=== PATIENT | male | born 1950 | race Caucasian/White ===

== ENCOUNTER 2020-05-30 06:57 | Day surgery (SDC) | payer MEDICARE, BC ==
[~2020-05-30 06:57] MED LIST: Lactated Ringers 1,000 ML IV SCH; Lidocaine 1%/Sod Bicarbonate in NS 8.4% 1 ML Syringe IDERM PRN; Sodium Chloride 0.9% 10 ML Syringe FLUSH PRN
--- NOTE | 2020-05-30 07:47 | PCM.PREANE ---
Preanesthetic Assessment - Procedure Proposed Procedure: Colonoscopy - Review of Systems General: No Symptoms, Fever Pulmonary: Cough (smoker's), Other (COPD, uses O2 at home intermittently) Cardiovascular: No Symptoms Gastrointestinal: No Symptoms Neurological: No Symptoms Other: Reports: None - Physical Assessment NPO Status Date: 05/30/20 NPO Status Time: 01:00 Vital Signs: Last Vital Signs Temp 97.7 F 05/30/20 07:00 Pulse 84 05/30/20 07:00 Resp 16 05/30/20 07:00 BP 137/94 H 05/30/20 07:00 Pulse Ox 95 05/30/20 07:00 Height: 1.83 m Weight: 99.79 kg ASA Class: 3 Mental Status: Alert & Oriented x3 Airway Class: Mallampati = 2 Dentition: Reports: Missing Tooth/Teeth, Caries Thyro-Mental Finger Breadths: 3 Mouth Opening Finger Breadths: 3 ROM/Head Extension: Full Lungs: Clear to Auscultation, Normal Respiratory Effort Cardiovascular: Regular Rate, Regular Rhythm - Lab Values: Laboratory Last Values POC Glucose 161 mg/dL (80-115) H 05/30/20 07:26 - Allergies Allergies/Adverse Reactions: Allergies Allergy/AdvReac Type Severity Reaction Status Date / Time No Known Allergies Allergy Verified 05/29/20 12:33 - Anesthesia Plan Beta Enrike: Metoprolol Med Last Dose Date: 05/29/20 Med Last Dose Time: 06:00 - Acknowledgements Anesthesia Type Planned: MAC Pt an Appropriate Candidate for the Planned Anesthesia: Yes Alternatives and Risks of Anesthesia Discussed w Pt/Guardian: Yes Pt/Guardian Understands and Agrees with Anesthesia Plan: Yes PreAnesthesia Questionnaire HEENT History: Reports: Glaucoma Cardiovascular History: Reports: High Cholesterol, Hypertension Respiratory History: Reports: Other (See Below) Other Respiratory History: o2 use at night Gastrointestinal History: Reports: Chronic Constipation Genitourinary History: Reports: None IMAGE SCIENTIST History: Reports: None Musculoskeletal History: Reports: Gout Neurological History: Reports: None Psychiatric History: Reports: None Endocrine/Metabolic History: Reports: Diabetes, Type II Hematologic History: Reports: Polycythemia, Other (See Below) Other Hematologic History: theraputic phlebotomy Immunologic History: Reports: None Oncologic (Cancer) History: Reports: None Dermatologic History: Reports: None - Infectious Disease History Infectious Disease History: Reports: None - Past Surgical History Head Surgeries/Procedures: Reports: None HEENT Surgical History: Reports: Tonsillectomy Cardiovascular Surgical History: Reports: Coronary Artery Bypass Respiratory Surgical History: Reports: None GI Surgical History: Reports: Colonoscopy Female Surgical History: Reports: None Male Surgical History: Reports: None Endocrine Surgical History: Reports: None Neurological Surgical History: Reports: None Musculoskeletal Surgical History: Reports: Arthroscopic Knee Dermatological Surgical History: Reports: None - SUBSTANCE USE Tobacco Use Status *Q: Current Every Day Tobacco User - HOME MEDS Home Medications: Home Meds Allopurinol [Zyloprim] 200 mg PO DAILY 05/29/20 [History] Ascorbic Acid [Vitamin C] 1,000 mg PO DAILY 05/29/20 [History] Aspirin [Jordan Chewable] 81 mg PO DAILY 05/29/20 [History] Brimonidine Tartrate [Brimonidine Tartrate 0.2% Ophth Soln] 1 drop EYEBOTH DAILY 05/29/20 [History] Docusate Sodium [Stool Softener] 100 mg PO DAILY 05/29/20 [History] Meloxicam [Mobic] 7.5 mg PO DAILY 05/29/20 [History] Metoprolol Succinate 50 mg PO DAILY 05/29/20 [History] Multivitamin 1 each PO DAILY 05/29/20 [History] Sildenafil [Viagra] 100 mg PO ASDIRECTED PRN 05/29/20 [History] Ubidecarenone [Coq-10] 100 mg PO DAILY 05/29/20 [History] Vitamin B Complex 1 each PO DAILY 05/29/20 [History] atorvaSTATin [Lipitor] 20 mg PO DAILY 05/29/20 [History] sitaGLIPtin Phos/Metformin HCl [Janumet 50-1,000 MG] 1 tab PO DAILY 05/29/20 [History] - CURRENT (IN HOUSE) MEDS Current Meds: Current Medications Lactated Ringer's (Ringers, Lactated) 1,000 mls @ 125 mls/hr IV ASDIRECTED CHRIS Stop: 05/30/20 23:00 Last Admin: 05/30/20 07:20 Dose: 125 mls/hr Documented by: Lidocaine/Sodium Bicarbonate (Buffered Lidocaine 1% In Ns 8.4%) 0.25 ml IDERM ONETIME PRN PRN Reason: Prior to IV Start Stop: 05/30/20 18:00 Last Admin: 05/30/20 07:19 Dose: 0.25 ml Documented by: Sodium Chloride (Saline Flush) 10 ml FLUSH ASDIRECTED PRN PRN Reason: Keep Vein Open Stop: 05/30/20 18:00
[2020-05-30] MEDS ORDERED: Propofol 200 MG/20 ML SDV ONE ×2 (07:57→08:37)
[2020-05-30] MEDS ORDERED: fentaNYL 100 MCG/2 ML SDV ONE (08:00)
[2020-05-30] MEDS ORDERED: Lidocaine 1% 4 ML ONE (08:09)
--- NOTE | 2020-05-30 09:10 | PCM.OPNOTE ---
- General Post-Op/Procedure Note Date of Surgery/Procedure: 05/30/20 Operative Procedure(s): colonoscopy Findings: 1. cecal polyp 2. ascending colon polyp 3. Hepatic flexure polyp x2 4. Transverse colon polyp x5 5. Descending colon polyp x4 6. Sigmoid colon polyp Pre Op Diagnosis: Positive cologuard Post-Op Diagnosis: same Anesthesia Technique: MAC Primary Surgeon: Marjorie Watters Anesthesia Provider: Carlitos Obando Pathology: 1. cecal polyp 2. ascending colon polyp 3. Hepatic flexure polyp x2 4. Transverse colon polyp x5 5. Descending colon polyp x4 6. Sigmoid colon polyp Fluid Replacement, Intraop: 1,000 Output, Urine Amount: 0 EBL in mLs: 0 Complications: none apparent Condition: Good
--- NOTE | 2020-05-30 09:12 | PCM.PRNOTE ---
- Free Text/Narrative Note: Operative Report Date of Surgery/Procedure: May 30, 2020 Operative Procedure: Colonoscopy to cecum with polypectomy Pre Op Diagnosis: Positive Cologuard test Post-Op Diagnosis: same Surgeon: Marjorie Watters MD Anesthesia Technique: MAC Anesthesia Provider: Carlitos Obando CRNA IV Fluid Replacement, Intraop: 1000cc Output, Urine Amount: 0cc EBL : 0cc Findings: 1. cecal polyp 2. ascending colon polyp 3. Hepatic flexure polyp x2 4. Transverse colon polyp x5 5. Descending colon polyp x4 6. Sigmoid colon polyp Specimens: cecal polyp ascending colon polyp Hepatic flexure polyp x2 Transverse colon polyp x5 Descending colon polyp x4 Sigmoid colon polyp Indication: The patient is a 69 year-old gentleman who presented to the outpatient clinic requesting colorectal cancer evaluation after obtaining a positive cologuard test. We discussed the procedure of a diagnostic colonoscopy including the po lypectomy and biopsy. Risks of bleeding and perforation were discussed, the patient understood and wished to proceed. Written and consent was obtained Description of the procedure: The patient was brought to the endoscopy suite and placed in the left lateral decubitus position. Appropriate monitors were applied. The patient was given MAC anesthesia. An anorectal examination was performed, revealing no external abnormality. The scope was placed into the rectum and advanced to cecum with minimal difficulty requiring no additional maneuvers. The patients cecum was entered, and the ileocecal valve and appendiceal orifice were identified and normal. At this point, the scope was withdrawn, paying careful attention to the mucosa. The patient had adequate bowel prep, allowing for visualization of 85- 90% of the mucosa after washing and suctioning. The cecal polyp was noted, measuring 3 mm and was flat. This was removed with a jumbo cold biopsy forceps. An additional 2 mm ascending colon flat polyp was noted and removed with a jumbo cold biopsy forceps. The patient had 2 polyps in the hepatic flexure one measuring 5 mm and the other measuring 3 mm these were semipedunculated and rem salvatore with a jumbo cold biopsy forceps. There were 5 transverse colon polyps ranging from 2 to 5 mm and flat. These were removed with a jumbo cold biopsy forceps. In the descending colon there were additional 4 flat polyps that measured 1 to 3 mm and removed with a jumbo cold biopsy forceps. A 5 mm semipedunculated polyp was noted in the sigmoid colon and removed with a jumbo cold biopsy forceps. In the rectum, the scope was retroflexed and no abnormalities were noted, except for some hemorrhoidal tissue. The scope was placed back in the lumen and the excess air was aspirated. The patient tolerated the procedure well. Complications: none apparent Condition: Good, transported to PACU in stable condition Marjorie Watters MD General Surgery
--- NOTE | 2020-05-30 09:49 | PCM48HPAN ---
Post Anesthesia Note - EVALUATION WITHIN 48HRS OF ANESTHETIC Vital Signs in Normal Range: Yes Patient Participated in Evaluation: Yes Respiratory Function Stable: Yes Airway Patent: Yes Cardiovascular Function Stable: Yes Hydration Status Stable: Yes Pain Control Satisfactory: Yes Nausea and Vomiting Control Satisfactory: Yes Mental Status Recovered: Yes Vital Signs: Last Vital Signs Temp 98.9 F 05/30/20 09:09 Pulse 68 05/30/20 09:30 Resp 16 05/30/20 09:30 BP 117/84 05/30/20 09:30 Pulse Ox 95 05/30/20 09:30
== END 2020-05-30 10:25 | disposition home or self-care (01) ==
LOC: JD.SDS 06:57
PROVIDERS: ATTEND Surgery
DX: D12.2 Benign neoplasm of ascending colon (principal); D12.3 Benign neoplasm of transverse colon; K63.89 Other specified diseases of intestine; K64.9 Unspecified hemorrhoids; I10 Essential (primary) hypertension; F17.210 Nicotine dependence, cigarettes, uncomplicated; E11.9 Type 2 diabetes mellitus without complications; Z98.890 Other specified postprocedural states; Z79.899 Other long term (current) drug therapy; Z82.49 Family history of ischemic heart disease and other diseases of the circulatory system
CPT/HCPCS: 45380; 82962; 88305; 93005; J2001; J2704; J3010; J7120; 00811

== ENCOUNTER 2021-05-18 23:24 | Emergency (ER) | payer MEDICARE, BC ==
--- NOTE | 2021-05-18 23:55 | EDM.PDOC ---
ED HPI GENERAL MEDICAL PROBLEM - General Chief Complaint: Respiratory Problem Stated Complaint: SACHIN AMB Time Seen by Provider: 05/18/21 23:50 Source of Information: Reports: Patient History Limitations: Reports: No Limitations - History of Present Illness INITIAL COMMENTS - FREE TEXT/NARRATIVE: Patient is a 70-year-old male with a smoking history presenting with a chief complaint of shortness of breath. Shortness of breath started just prior to arrival. Patient fell sudden onset of difficulty breathing which did not improve despite applying some supplemental oxygen at home. He states he was prescribed submental oxygen several years ago but is never used it. He otherwise denies any headache, chest pain, lower extremity swelling. He has no cough or fever. Denies recent hospitalizations or surgeries. - Related Data Allergies Allergy/AdvReac Type Severity Reaction Status Date / Time No Known Allergies Allergy Verified 05/18/21 23:32 Home Meds: Home Meds Ascorbic Acid [Vitamin C] 1,000 mg PO DAILY 05/29/20 [History] Aspirin [Jordan Chewable Aspirin] 81 mg PO DAILY 05/29/20 [History] Brimonidine Tartrate [Brimonidine Tartrate 0.2% Ophth Soln] 1 drop EYEBOTH DAILY 05/29/20 [History] Docusate Sodium [Stool Softener] 100 mg PO DAILY 05/29/20 [History] Meloxicam [Mobic] 7.5 mg PO DAILY 05/29/20 [History] Metoprolol Succinate 50 mg PO DAILY 05/29/20 [History] Multivitamin 1 each PO DAILY 05/29/20 [History] Sildenafil [Viagra] 100 mg PO ASDIRECTED PRN 05/29/20 [History] Ubidecarenone [Coq-10] 100 mg PO DAILY 05/29/20 [History] Vitamin B Complex 1 each PO DAILY 05/29/20 [History] allopurinoL [Zyloprim] 200 mg PO DAILY 05/29/20 [History] atorvaSTATin [Lipitor] 20 mg PO DAILY 05/29/20 [History] sitaGLIPtin Phos/Metformin HCl [Janumet 50-1,000 MG] 1 tab PO DAILY 05/29/20 [History] Potassium Chloride 20 meq PO TID #30 packet 05/19/21 [Rx] Past Medical History HEENT History: Reports: Glaucoma Cardiovascular History: Reports: High Cholesterol, Hypertension Respiratory History: Reports: Other (See Below) Other Respiratory History: o2 use at night Gastrointestinal History: Reports: Chronic Constipation Genitourinary History: Reports: None TECH INTERN History: Reports: None Musculoskeletal History: Reports: Gout Neurological History: Reports: None Psychiatric History: Reports: None Endocrine/Metabolic History: Reports: Diabetes, Type II Hematologic History: Reports: Polycythemia, Other (See Below) Other Hematologic History: theraputic phlebotomy Immunologic History: Reports: None Oncologic (Cancer) History: Reports: None Dermatologic History: Reports: None - Infectious Disease History Infectious Disease History: Reports: None - Past Surgical History Head Surgeries/Procedures: Reports: None HEENT Surgical History: Reports: Tonsillectomy Cardiovascular Surgical History: Reports: Coronary Artery Bypass Respiratory Surgical History: Reports: None GI Surgical History: Reports: Colonoscopy Male Surgical History: Reports: None Endocrine Surgical History: Reports: None Neurological Surgical History: Reports: None Musculoskeletal Surgical History: Reports: Arthroscopic Knee Dermatological Surgical History: Reports: None Social & Family History - Tobacco Use Tobacco Use Status *Q: Current Every Day Tobacco User Years of Tobacco use: 50 Packs/Tins Daily: 0.5 - Recreational Drug Use Recreational Drug Use: No ED ROS GENERAL - Review of Systems Review Of Systems: See Below Free Text/Narrative/Comment: In addition to that documented in the HPI above, the additional ROS was obtained: Constitutional: Denies fevers or chills Eyes: Denies vision changes ENMT: Denies sore throat CV: Denies chest pain Resp: Per HPI GI: Denies vomiting or diarrhea : Denies painful urination MSK: Denies recent trauma Skin: Denies new rashes Neuro: Denies new numbness or tingling or weakness Endocrine: Denies unexpected weight loss Heme: Denies bleeding disorders ED EXAM, GENERAL - Physical Exam Exam: See Below Free Text/Narrative:: I have reviewed the triage vital signs Const: Well nourished, well developed, appears stated age Eyes: Pupils Equal and reactive to light bilaterally, no conjunctival injection HENT: No signs of trauma or swelling, Neck supple without meningismus CV: Regular Rate Rhythm, Warm, well-perfused extremities RESP: Unlabored respiratory effort. No wheezing or rales. GI: soft, non-tender, non-distended, no masses MSK: No gross deformities appreciated Skin: Warm, dry. No rashes Neuro: Alert, maple syrup maker II-XII grossly intact. Sensation and motor function of extremities grossly intact. Psych: Appropriate mood and affect. #1 Interpretation EKG Date: 05/18/21 Time: 23:38 Rhythm: NSR Rate (Beats/Min): 88 Goodman: RAD-Right Goodman Deviation P-Wave: Present QRS: Normal ST-T: Depressed QT: Normal Comparison: Change From Previous EKG EKG Interpretation Comments: Ventricular trigeminy noted. Slight ST depression in lateral leads V4 through V6. Abnormal EKG. Course - Vital Signs Last Recorded V/S: Last Vital Signs Temp 36.1 C 05/18/21 23:29 Pulse 85 05/19/21 04:00 Resp 18 05/19/21 04:00 BP 119/78 05/19/21 04:00 Pulse Ox 97 05/19/21 04:00 - Orders/Labs/Meds Orders: Active Orders 24 hr Category Date Time Status Ang Chest [CT] Stat Exams 05/19/21 00:10 Taken Chest 1V Frontal [CR] Stat Exams 05/18/21 23:38 Taken Labs: Laboratory Tests 05/18/21 05/18/21 05/18/21 Range/Units 23:30 23:39 23:39 WBC 9.50 H (4.23-9.07) K/mm3 RBC 5.41 (4.63-6.08) M/mm3 Hgb 13.8 (13.7-17.5) gm/dl Hct 43.3 (40.1-51.0) % MCV 80.0 (79.0-92.2) fl MCH 25.5 L (25.7-32.2) pg MCHC 31.9 L (32.2-35.5) g/dl RDW Std Deviation 62.6 H (35.1-43.9) fL Plt Count 205 (163-337) K/mm3 MPV 10.2 (9.4-12.3) fl Neut % (Auto) 70.4 H (34.0-67.9) % Lymph % (Auto) 18.5 L (21.8-53.1) % Brantley % (Auto) 7.8 (5.3-12.2) % Eos % (Auto) 2.7 (0.8-7.0) Baso % (Auto) 0.4 (0.1-1.2) % Neut # (Auto) 6.68 H (1.78-5.38) K/mm3 Lymph # (Auto) 1.76 (1.32-3.57) K/mm3 Brantley # (Auto) 0.74 (0.30-0.82) K/mm3 Eos # (Auto) 0.26 (0.04-0.54) K/mm3 Baso # (Auto) 0.04 (0.01-0.08) K/mm3 PT 11.4 (9.7-12.0) SECONDS INR 1.03 D-Dimer, Quantitative (0.19-0.50) mg/L VBG pH (7.30-7.40) VBG pCO2 (41-51) mmHg VBG pO2 (40-80) mmHG VBG HCO3 (22-26) meq/L VBG O2 Saturation VBG Base Excess (-4.0-2.0) O2 Delivery Device Oxygen Flow Rate Sodium (136-145) mEq/L Potassium (3.5-5.1) mEq/L Chloride (98-107) mEq/L Carbon Dioxide (21-32) mEq/L Anion Gap (5-15) BUN (7-18) mg/dL Creatinine (0.7-1.3) mg/dL Est Cr Clr Drug Dosing Estimated GFR (MDRD) (>60) mL/min BUN/Creatinine Ratio (14-18) Glucose (70-99) mg/dL Calcium (8.5-10.1) mg/dL Magnesium (1.8-2.4) mg/dL Total Bilirubin (0.2-1.0) mg/dL AST (15-37) U/L ALT (16-63) U/L Alkaline Phosphatase (46-116) U/L Troponin I (0.00-0.056) ng/mL Total Protein (6.4-8.2) g/dl Albumin (3.4-5.0) g/dl Globulin gm/dL Albumin/Globulin Ratio (1-2) Influenza Type A RNA Negative (NEGATIVE) Influenza Type B RNA Negative (NEGATIVE) SARS-CoV-2 RNA (DREA) Negative (NEGATIVE) 05/18/21 05/18/21 05/18/21 Range/Units 23:39 23:39 23:39 WBC (4.23-9.07) K/mm3 RBC (4.63-6.08) M/mm3 Hgb (13.7-17.5) gm/dl Hct (40.1-51.0) % MCV (79.0-92.2) fl MCH (25.7-32.2) pg MCHC (32.2-35.5) g/dl RDW Std Deviation (35.1-43.9) fL Plt Count (163-337) K/mm3 MPV (9.4-12.3) fl Neut % (Auto) (34.0-67.9) % Lymph % (Auto) (21.8-53.1) % Brantley % (Auto) (5.3-12.2) % Eos % (Auto) (0.8-7.0) Baso % (Auto) (0.1-1.2) % Neut # (Auto) (1.78-5.38) K/mm3 Lymph # (Auto) (1.32-3.57) K/mm3 Brantley # (Auto) (0.30-0.82) K/mm3 Eos # (Auto) (0.04-0.54) K/mm3 Baso # (Auto) (0.01-0.08) K/mm3 PT (9.7-12.0) SECONDS INR D-Dimer, Quantitative 2.38 H (0.19-0.50) mg/L VBG pH (7.30-7.40) VBG pCO2 (41-51) mmHg VBG pO2 (40-80) mmHG VBG HCO3 (22-26) meq/L VBG O2 Saturation VBG Base Excess (-4.0-2.0) O2 Delivery Device Oxygen Flow Rate Sodium 142 (136-145) mEq/L Potassium 2.7 L (3.5-5.1) mEq/L Chloride 103 (98-107) mEq/L Carbon Dioxide 28 (21-32) mEq/L Anion Gap 13.7 (5-15) BUN 15 (7-18) mg/dL Creatinine 1.2 (0.7-1.3) mg/dL Est Cr Clr Drug Dosing TNP Estimated GFR (MDRD) 60 (>60) mL/min BUN/Creatinine Ratio 12.5 L (14-18) Glucose 254 H (70-99) mg/dL Calcium 9.2 (8.5-10.1) mg/dL Magnesium 1.4 L (1.8-2.4) mg/dL Total Bilirubin 1.0 (0.2-1.0) mg/dL AST 35 (15-37) U/L ALT 32 (16-63) U/L Alkaline Phosphatase 105 (46-116) U/L Troponin I < 0.017 (0.00-0.056) ng/mL Total Protein 7.1 (6.4-8.2) g/dl Albumin 3.2 L (3.4-5.0) g/dl Globulin 3.9 gm/dL Albumin/Globulin Ratio 0.8 L (1-2) Influenza Type A RNA (NEGATIVE) Influenza Type B RNA (NEGATIVE) SARS-CoV-2 RNA (DREA) (NEGATIVE) 05/18/21 05/19/21 Range/Units 23:58 03:04 WBC (4.23-9.07) K/mm3 RBC (4.63-6.08) M/mm3 Hgb (13.7-17.5) gm/dl Hct (40.1-51.0) % MCV (79.0-92.2) fl MCH (25.7-32.2) pg MCHC (32.2-35.5) g/dl RDW Std Deviation (35.1-43.9) fL Plt Count (163-337) K/mm3 MPV (9.4-12.3) fl Neut % (Auto) (34.0-67.9) % Lymph % (Auto) (21.8-53.1) % Brantley % (Auto) (5.3-12.2) % Eos % (Auto) (0.8-7.0) Baso % (Auto) (0.1-1.2) % Neut # (Auto) (1.78-5.38) K/mm3 Lymph # (Auto) (1.32-3.57) K/mm3 Brantley # (Auto) (0.30-0.82) K/mm3 Eos # (Auto) (0.04-0.54) K/mm3 Baso # (Auto) (0.01-0.08) K/mm3 PT (9.7-12.0) SECONDS INR D-Dimer, Quantitative (0.19-0.50) mg/L VBG pH 7.36 (7.30-7.40) VBG pCO2 48.2 (41-51) mmHg VBG pO2 22.0 L (40-80) mmHG VBG HCO3 26.2 H (22-26) meq/L VBG O2 Saturation 37.4 VBG Base Excess 0.6 (-4.0-2.0) O2 Delivery Device Nasal cannula Oxygen Flow Rate 2.0 Sodium (136-145) mEq/L Potassium 3.1 L (3.5-5.1) mEq/L Chloride (98-107) mEq/L Carbon Dioxide (21-32) mEq/L Anion Gap (5-15) BUN (7-18) mg/dL Creatinine (0.7-1.3) mg/dL Est Cr Clr Drug Dosing Estimated GFR (MDRD) (>60) mL/min BUN/Creatinine Ratio (14-18) Glucose (70-99) mg/dL Calcium (8.5-10.1) mg/dL Magnesium (1.8-2.4) mg/dL Total Bilirubin (0.2-1.0) mg/dL AST (15-37) U/L ALT (16-63) U/L Alkaline Phosphatase (46-116) U/L Troponin I (0.00-0.056) ng/mL Total Protein (6.4-8.2) g/dl Albumin (3.4-5.0) g/dl Globulin gm/dL Albumin/Globulin Ratio (1-2) Influenza Type A RNA (NEGATIVE) Influenza Type B RNA (NEGATIVE) SARS-CoV-2 RNA (DREA) (NEGATIVE) Meds: Medications Discontinued Medications Generic Name Dose Route Start Last Admin Trade Name Freq PRN Reason Stop Dose Admin Amoxicillin/Clavulanate Potassium 1 tab 05/19/21 01:44 05/19/21 02:22 Amoxicillin/Clavulanate K 875-125 Mg Tab PO 05/19/21 01:45 1 tab ONETIME ONE Administration Doxycycline Hyclate 100 mg 05/19/21 01:44 05/19/21 02:22 Doxycycline 100 Mg Cap PO 05/19/21 01:45 100 mg ONETIME ONE Administration Magnesium Sulfate 2 gm/ Premix 50 mls @ 25 mls/hr 05/19/21 00:25 05/19/21 00:43 IV 05/19/21 02:24 25 mls/hr ONETIME ONE Administration Potassium Chloride 10 meq/ 100 mls @ 100 mls/hr 05/19/21 00:25 05/19/21 00:44 Premix IV 05/19/21 01:24 100 mls/hr ONETIME ONE Administration Potassium Chloride 10 meq/ 100 mls @ 100 mls/hr 05/19/21 00:26 Premix IV 05/19/21 01:25 ONETIME ONE Potassium Chloride 10 meq/ 100 mls @ 100 mls/hr 05/19/21 00:27 05/19/21 01:45 Premix IV 05/19/21 01:26 100 mls/hr ONETIME ONE Administration Sodium Chloride 100 mls @ 60 mls/min 05/19/21 00:45 05/19/21 00:39 Normal Saline IV 60 mls/min ASDIRECTED CHRIS Administration Iopamidol 100 ml 05/19/21 00:37 05/19/21 00:39 Iopamidol 755 Mg/Ml 100 Ml Bottle IVPUSH 05/19/21 00:38 100 ml ONETIME ONE Administration Potassium Chloride 40 meq 05/19/21 00:25 05/19/21 00:44 Potassium Chloride 20 Meq Tab.Er PO 05/19/21 00:26 40 meq ONETIME ONE Administration Sodium Chloride 10 ml 05/19/21 00:37 05/19/21 00:39 Sodium Chloride 0.9% 10 Ml Sdv FLUSH 05/19/21 00:38 10 ml ONETIME ONE Administration Departure - Departure Time of Disposition: 03:30 Disposition: Home, Self-Care 01 Clinical Impression: Pneumonia, Hypokalemia, Hypomagnesemia, Pulmonary nodules/lesions, multiple - Discharge Information Prescriptions: Potassium Chloride 20 meq PO TID #30 packet Instructions: Community-Acquired Pneumonia, Adult, [id number] Referrals: Perry Yin MD [Primary Care Provider] - Forms: ED Department Discharge Additional Instructions: Take full course of antibiotics and potassium as directed. Please use your oxygen at home to help with your breathing. Follow-up with your primary care physician in the next several days. Return to the emergency room for worsening symptoms or other emergent concerns. Sepsis Event Note (ED) - Evaluation Sepsis Screening Result: No Definite Risk - Focused Exam Vital Signs: Vital Signs Temp Pulse Resp BP Pulse Ox 05/19/21 04:00 85 18 119/78 97 05/18/21 23:29 36.1 C 114 H 16 152/115 H 91 L - My Orders Last 24 Hours: My Active Orders 05/18/21 23:38 Chest 1V Frontal [CR] Stat 05/19/21 00:10 Ang Chest [CT] Stat - Assessment/Plan Last 24 Hours: My Active Orders 05/18/21 23:38 Chest 1V Frontal [CR] Stat 05/19/21 00:10 Ang Chest [CT] Stat Assessment:: Patient is a 70-year-old male presenting to the emergency room with shortness of breath. Broad differential diagnosis considered for this patient include ACS, PE, pneumothorax, pneumonia, CHF. Initial EKG demonstrates findings as reported above. Patient not in significant respiratory distress. Work-up demonstrates significant elevation of D-dimer and patient underwent CT scan. CT scan shows evidence of possible bibasilar pneumonia. Also concern for possible metastasis with numerous pulmonary nodules. Laboratory studies were otherwise unremarkable. Patient was initiated with Augmentin and doxycycline for pneumonia here in the emergency room. Patient does have home oxygen and was instructed to use it as directed. There is some concern that patient is poorly compliant with oxygen regimen. Otherwise, I did recommend he follow-up with his primary care physician for further evaluation of these nodules. All questions were addressed and answered. Patient agrees with plan of care.
[2021-05-19 00:21] LABS: CORONAVIRUS COVID-19 NAA NEGATIVE (NEGATIVE)
[2021-05-19] MEDS ORDERED: Potassium Chloride 10 MEQ in Premix Bag 1 BAG IV ONE ×3 (00:25→00:27)
[2021-05-19] MEDS ORDERED: Potassium Chloride 20 MEQ Tab.ER PO ONE (00:25)
[2021-05-19] MEDS ORDERED: Magnesium Sulfate/Water 2 GM in Premix Bag 1 BAG IV ONE (00:25)
[2021-05-19] MEDS ORDERED: Iopamidol 755 Mg/ML 100 ML Bottle IVPUSH ONE (00:37)
[2021-05-19] MEDS ORDERED: Sodium Chloride 0.9% 10 ML SDV FLUSH ONE (00:37)
[2021-05-19] MEDS ORDERED: Sodium Chloride 0.9% 100 ML IV SCH (00:45)
[2021-05-19] MEDS ORDERED: Doxycycline 100 MG Cap PO ONE (01:44)
[2021-05-19] MEDS ORDERED: Amoxicillin/Clavulanate K 875-125 MG Tab PO ONE (01:44)
--- NOTE | 2021-05-19 07:37 | CR ---
Chest: Portable view of the chest was obtained. Comparison: Prior chest CT study of 09/15/[address] study performed on 05/19/21 at 12:07 AM. Heart is enlarged. Tortuous thoracic aorta is seen. Prior sternotomy is seen. Pulmonary vessels are congested. Impression: 1. Findings suspicious for CHF. This correlates with subsequent chest CT. Diagnostic code #3
--- NOTE | 2021-05-19 08:49 | CT ---
CT chest Technique: Multiple axial sections through the chest were obtained. Intravenous contrast was utilized. Study has been performed as a pulmonary angiogram protocol. Comparison: Prior CT chest study of 09/14/20. Findings: Pulmonary arteries show no filling defects. Nothing is seen to indicate pulmonary embolism. Thoracic aorta shows atherosclerotic change with no aneurysm. Mildly prominent mediastinal lymph nodes are seen. Largest lymph node measures 3.0 cm. This lymph node measured 2.1 cm on prior exam. Coronary artery calcification is noted. Prior sternotomy is seen compatible with previous CABG. Upper abdominal structures show a nonobstructing stone within the left kidney. Small calcified gallstone is noted within the gallbladder. Small to moderate sized bilateral pleural effusions are noted. Atelectasis is noted adjacent to the pleural effusions posteriorly most likely on a compressive basis. Small pulmonary nodules are noted within both upper lungs which are partially seen on prior CT exam and most likely are benign. Bone window settings were reviewed. Very prominent posterior spurring is noted within the lower thoracic spine which causes severe central canal stenosis. Diffuse disc space narrowing is seen within the thoracic spine with diffuse anterior endplate osteophytes. Impression: 1. No findings of pulmonary embolism. 2. Prior sternotomy and CABG. 3. Small to moderate sized bilateral pleural effusions with compressive atelectasis is seen adjacent to the pleural effusions within both lung bases. Pleural effusions could relate to CHF. Please correlate. 4. Small nodules are seen within both upper lungs which are believed to be fairly stable from prior chest CT and therefore felt to be benign. 5. Slightly prominent mediastinal lymph nodes are seen. Lymph nodes have minimally increased in size from previous exam and could be due to inflammatory change but difficult to completely exclude neoplasm (although this is felt to be less likely). 6. Very prominent posterior spurring within the lower thoracic spine causing severe central canal stenosis. 7. Other chronic findings as described above. Diagnostic code #3 I somewhat disagree with preliminary report from [facility] (please see above), finalized on 05/19/21, 2:16 AM [facility], code 2
== END 2021-05-19 04:13 | disposition home or self-care (01) ==
LOC: JD.ED 23:24
DX: J18.9 Pneumonia, unspecified organism (principal); E87.6 Hypokalemia; E83.42 Hypomagnesemia; R91.8 Other nonspecific abnormal finding of lung field; E78.00 Pure hypercholesterolemia, unspecified; I10 Essential (primary) hypertension; M10.9 Gout, unspecified; E11.9 Type 2 diabetes mellitus without complications; Z79.82 Long term (current) use of aspirin; Z79.899 Other long term (current) drug therapy; Z72.0 Tobacco use; Z20.822 Contact with and (suspected) exposure to COVID-19
CPT/HCPCS: 0240U; 36415; 71045; 71275; 80053; 82803; 83735; 84132; 84484; 85025; 85379; 85610; 93005; 96365; 96366; 96368; 99285; A9270; J3475; J3480; Q9967; 93010

== ENCOUNTER 2021-05-28 18:53 | Inpatient (IN) | payer MEDICARE, BC ==
[~2021-05-28 18:53] MED LIST changes: -Lactated Ringers 1,000 ML IV SCH; -Lidocaine 1%/Sod Bicarbonate in NS 8.4% 1 ML Syringe IDERM PRN; +Magnesium Sulfate/Water 2 GM in Premix Bag 1 BAG IV ONE; -Sodium Chloride 0.9% 10 ML Syringe FLUSH PRN
[2021-05-28] MEDS ORDERED: Magnesium Sulfate/Water 2 GM in Premix Bag 1 BAG IV ONE (19:38)
[2021-05-28] MEDS ORDERED: Potassium Chloride 20 MEQ Tab.ER PO ONE ×2 (19:39→20:07)
[2021-05-28 19:43] LABS: CORONAVIRUS COVID-19 NAA NEGATIVE (NEGATIVE)
[2021-05-28] MEDS ORDERED: Potassium Chloride 10 MEQ in Premix Bag 1 BAG IV SCH (19:45)
[2021-05-28] MEDS ORDERED: Lactated Ringers 1,000 ML IV ONE ×2 (20:08→20:13)
[2021-05-28] MEDS ORDERED: Lactated Ringers 1,000 ML IV SCH (20:15)
[2021-05-28] MEDS: Potassium Chloride 10 MEQ in Premix Bag 1 BAG IV SCH ×3 (20:27→22:48)
[2021-05-28] MEDS ORDERED: Lactated Ringers 500 ML IV ONE (20:28)
[2021-05-28] MEDS ORDERED: Furosemide 40 MG/4 ML VIAL IVPUSH ONE (23:29)
[2021-05-28] MEDS ORDERED: Magnesium Sulfate/Water 2 GM in Premix Bag 1 BAG IV SCH (23:45)
[2021-05-28] MEDS ORDERED: Heparin Sodium/D5W 25,000 UNITS/500 ML BAG IV SCH (23:45)
[2021-05-28] MEDS ORDERED: Heparin Sodium 5,000 Units/ML Vial IVPUSH ONE (23:53)
[2021-05-29] MEDS ORDERED: Magnesium Sulfate/Water 2 GM in Premix Bag 1 BAG IV ONE ×2 (00:04→17:09)
[2021-05-29] MEDS ORDERED: Piperacillin/Tazobactam 4.5 GM in Sodium Chloride 0.9% 100 ML IV ONE (00:12)
[2021-05-29] MEDS: Potassium Chloride 10 MEQ in Premix Bag 1 BAG IV SCH (00:20)
[2021-05-29] MEDS ORDERED: Piperacillin/Tazobactam 4.5 GM AdvVial ONE (00:28)
[2021-05-29] MEDS ORDERED: Furosemide 40 MG/4 ML VIAL IVPUSH ONE (07:18)
[2021-05-29] MEDS ORDERED: Acetaminophen 325 MG Tab PO PRN (16:27)
[2021-05-29] MEDS ORDERED: Potassium Chloride 20 MEQ Tab.ER PO ONE (17:08)
[2021-05-29] MEDS ORDERED: Furosemide 20 MG/2 ML VIAL IVPUSH ONE (17:10)
[2021-05-29] MEDS: Piperacillin/Tazobactam 4.5 GM in Sodium Chloride 0.9% 100 ML IV SCH (17:14)
[2021-05-29] MEDS ORDERED: Magnesium Sulfate/Water 2 GM in Premix Bag 1 BAG IV SCH (17:15)
[2021-05-29] MEDS: Aspirin 81 MG Tab.Chew PO SCH (17:55)
[2021-05-29] MEDS ORDERED: Vancomycin 1.75 GM in Sodium Chloride 0.9% 500 ML IV ONE (18:00)
[2021-05-29] MEDS: Rosuvastatin 10 MG Tab PO SCH (21:07)
[2021-05-29] MEDS: Insulin Lispro 100 Unit/ML 3 ML KwikPen SUBCUT SCH (21:13)
[2021-05-30] MEDS: Piperacillin/Tazobactam 4.5 GM in Sodium Chloride 0.9% 100 ML IV SCH ×3 (00:02→17:53)
[2021-05-30] MEDS ORDERED: Melatonin 3 MG Tab PO PRN (00:16)
[2021-05-30] MEDS: Vancomycin 1 GM, Vancomycin 250 MG in Sodium Chloride 0.9% 250 ML IV SCH ×2 (05:10→17:54)
[2021-05-30] MEDS: Insulin Lispro 100 Unit/ML 3 ML KwikPen SUBCUT SCH ×4 (06:18→21:18)
[2021-05-30 08:04] LABS: HEMOGLOBIN A1C 6.4 %
[2021-05-30] MEDS ORDERED: Potassium Chloride 10 MEQ in Premix Bag 1 BAG IV SCH (08:15)
[2021-05-30] MEDS: Aspirin 81 MG Tab.Chew PO SCH (08:30)
[2021-05-30] MEDS ORDERED: Potassium Chloride 20 MEQ Tab.ER PO ONE (08:30)
[2021-05-30] MEDS ORDERED: Magnesium Sulfate/Water 4 GM in Premix Bag 1 BAG IV ONE (08:57)
[2021-05-30] MEDS: Nicotine 21 MG/24 Hr Patch TRDERM SCH (11:30)
[2021-05-30] MEDS ORDERED: Sodium Chloride 0.9% 250 ML IV ONE (11:30)
[2021-05-30] MEDS: Potassium Chloride 10 MEQ in Premix Bag 1 BAG IV SCH ×4 (11:47→15:47)
[2021-05-30] MEDS ORDERED: Furosemide 40 MG/4 ML VIAL IVPUSH ONE (14:30)
[2021-05-30] MEDS ORDERED: Piperacillin/Tazobactam 4.5 GM AdvVial ONE (17:42)
[2021-05-30] MEDS: Rosuvastatin 10 MG Tab PO SCH (20:11)
[2021-05-30] MEDS: Melatonin 3 MG Tab PO SCH (20:51)
[2021-05-30] MEDS ORDERED: Potassium Chloride 20 MEQ Tab.ER PO SCH (21:00)
[2021-05-31] MEDS: Piperacillin/Tazobactam 4.5 GM in Sodium Chloride 0.9% 100 ML IV SCH ×3 (01:07→17:22)
[2021-05-31] MEDS: Vancomycin 1 GM, Vancomycin 250 MG in Sodium Chloride 0.9% 250 ML IV SCH ×2 (06:46→17:23)
[2021-05-31] MEDS: Insulin Lispro 100 Unit/ML 3 ML KwikPen SUBCUT SCH ×4 (07:15→21:08)
[2021-05-31] MEDS: Potassium Chloride 20 MEQ Tab.ER PO SCH ×2 (10:02→20:42)
[2021-05-31] MEDS: Aspirin 81 MG Tab.Chew PO SCH (10:03)
[2021-05-31] MEDS: Nicotine 21 MG/24 Hr Patch TRDERM SCH (10:04)
[2021-05-31] MEDS: FLUoxetine 10 MG Cap PO SCH (17:28)
[2021-05-31] MEDS: Rosuvastatin 10 MG Tab PO SCH (20:41)
[2021-05-31] MEDS: Melatonin 3 MG Tab PO SCH (20:41)
[2021-06-01] MEDS: Piperacillin/Tazobactam 4.5 GM in Sodium Chloride 0.9% 100 ML IV SCH ×3 (00:42→18:00)
[2021-06-01] MEDS: Vancomycin 1 GM, Vancomycin 250 MG in Sodium Chloride 0.9% 250 ML IV SCH ×2 (05:24→18:27)
[2021-06-01] MEDS: Insulin Lispro 100 Unit/ML 3 ML KwikPen SUBCUT SCH ×4 (06:20→21:07)
[2021-06-01] MEDS ORDERED: Furosemide 40 MG/4 ML VIAL IVPUSH ONE (07:42)
[2021-06-01] MEDS ORDERED: Magnesium Sulfate/Water 2 GM in Premix Bag 1 BAG IV ONE (07:44)
[2021-06-01] MEDS: Cholecalciferol (Vitamin D3) 25 MCG Tab PO SCH (08:36)
[2021-06-01] MEDS: FLUoxetine 10 MG Cap PO SCH (08:36)
[2021-06-01] MEDS: Aspirin 81 MG Tab.Chew PO SCH (08:36)
[2021-06-01] MEDS: Nicotine 21 MG/24 Hr Patch TRDERM SCH (12:03)
[2021-06-01] MEDS: Melatonin 3 MG Tab PO SCH (20:46)
[2021-06-01] MEDS: Rosuvastatin 10 MG Tab PO SCH (20:47)
[2021-06-02] MEDS: Piperacillin/Tazobactam 4.5 GM in Sodium Chloride 0.9% 100 ML IV SCH ×3 (01:45→17:38)
[2021-06-02] MEDS ORDERED: Magnesium Sulfate/Water 2 GM in Premix Bag 1 BAG IV ONE (08:00)
[2021-06-02] MEDS: Insulin Lispro 100 Unit/ML 3 ML KwikPen SUBCUT SCH ×4 (08:39→21:16)
[2021-06-02] MEDS: Cholecalciferol (Vitamin D3) 25 MCG Tab PO SCH (08:41)
[2021-06-02] MEDS: Aspirin 81 MG Tab.Chew PO SCH (08:43)
[2021-06-02] MEDS: FLUoxetine 10 MG Cap PO SCH (08:44)
[2021-06-02] MEDS ORDERED: Potassium Chloride 20 MEQ Tab.ER PO SCH (09:00)
[2021-06-02] MEDS: Furosemide 40 MG Tab PO SCH (09:57)
[2021-06-02] MEDS ORDERED: Magnesium Hydroxide 400 MG/5 ML Susp 30 ML Cup PO ONE (11:41)
[2021-06-02] MEDS: Nicotine 21 MG/24 Hr Patch TRDERM SCH (12:08)
[2021-06-02] MEDS: Rosuvastatin 10 MG Tab PO SCH (20:25)
[2021-06-02] MEDS: QUEtiapine 25 MG Tab PO PRN (20:25)
[2021-06-02] MEDS: Melatonin 3 MG Tab PO SCH (20:25)
[2021-06-02] MEDS ORDERED: QUEtiapine 25 MG Tab PO SCH (21:00)
[2021-06-03] MEDS: Piperacillin/Tazobactam 4.5 GM in Sodium Chloride 0.9% 100 ML IV SCH ×3 (00:39→16:06)
[2021-06-03] MEDS: Insulin Lispro 100 Unit/ML 3 ML KwikPen SUBCUT SCH ×4 (06:44→22:15)
[2021-06-03] MEDS ORDERED: Polyethylene Glycol 3350 Powder 17 GM Packet PO ONE ×2 (09:00→17:00)
[2021-06-03] MEDS ORDERED: Docusate Sodium 100 MG Cap PO ONE (09:00)
[2021-06-03] MEDS: Aspirin 81 MG Tab.Chew PO SCH (09:04)
[2021-06-03] MEDS: Cholecalciferol (Vitamin D3) 25 MCG Tab PO SCH (09:04)
[2021-06-03] MEDS: Potassium Chloride 20 MEQ Tab.ER PO SCH ×2 (09:05→20:04)
[2021-06-03] MEDS: FLUoxetine 10 MG Cap PO SCH (09:05)
[2021-06-03] MEDS: Furosemide 40 MG Tab PO SCH (09:05)
[2021-06-03] MEDS: Nicotine 21 MG/24 Hr Patch TRDERM SCH (11:52)
[2021-06-03] MEDS: Melatonin 3 MG Tab PO SCH (20:04)
[2021-06-03] MEDS: Rosuvastatin 10 MG Tab PO SCH (20:04)
[2021-06-03] MEDS: QUEtiapine 25 MG Tab PO PRN (20:05)
[2021-06-04] MEDS: Piperacillin/Tazobactam 4.5 GM in Sodium Chloride 0.9% 100 ML IV SCH (00:16)
[2021-06-04] MEDS ORDERED: Magnesium Citrate Solution 296 ML Bottle PO ONE (06:00)
[2021-06-04] MEDS: Insulin Lispro 100 Unit/ML 3 ML KwikPen SUBCUT SCH ×4 (07:39→21:35)
[2021-06-04] MEDS: Potassium Chloride 20 MEQ Tab.ER PO SCH ×2 (08:25→21:37)
[2021-06-04] MEDS: Cholecalciferol (Vitamin D3) 25 MCG Tab PO SCH (08:25)
[2021-06-04] MEDS: Aspirin 81 MG Tab.Chew PO SCH (08:25)
[2021-06-04] MEDS: Furosemide 40 MG Tab PO SCH (08:25)
[2021-06-04] MEDS: FLUoxetine 10 MG Cap PO SCH (08:25)
[2021-06-04] MEDS: Nicotine 21 MG/24 Hr Patch TRDERM SCH (12:00)
[2021-06-04] MEDS: QUEtiapine 25 MG Tab PO PRN (21:37)
[2021-06-04] MEDS: Melatonin 3 MG Tab PO SCH (21:38)
[2021-06-04] MEDS: Rosuvastatin 10 MG Tab PO SCH (21:38)
[2021-06-04] MEDS ORDERED: diphenhydrAMINE/Zinc Acetate 1% Crm 28.3 GM Tube TOP PRN (21:46)
[2021-06-05] MEDS ORDERED: diphenhydrAMINE/Zinc Acetate 1% Crm 28.3 GM Tube TOP PRN (01:44)
[2021-06-05] MEDS: Insulin Lispro 100 Unit/ML 3 ML KwikPen SUBCUT SCH ×4 (07:28→21:25)
[2021-06-05] MEDS: FLUoxetine 10 MG Cap PO SCH (09:06)
[2021-06-05] MEDS: Cholecalciferol (Vitamin D3) 25 MCG Tab PO SCH (09:06)
[2021-06-05] MEDS: Aspirin 81 MG Tab.Chew PO SCH (09:07)
[2021-06-05] MEDS: Potassium Chloride 20 MEQ Tab.ER PO SCH ×2 (09:07→21:25)
[2021-06-05] MEDS: Furosemide 40 MG Tab PO SCH (09:09)
[2021-06-05] MEDS: Nicotine 21 MG/24 Hr Patch TRDERM SCH (11:44)
[2021-06-05] MEDS: Enoxaparin 40 MG/0.4 ML Syringe SUBCUT SCH (11:45)
[2021-06-05] MEDS ORDERED: diphenhydrAMINE/Zinc Acetate 2% Crm 28.4 GM Tube TOP PRN (15:21)
[2021-06-05] MEDS: Rosuvastatin 10 MG Tab PO SCH (21:25)
[2021-06-05] MEDS: QUEtiapine 25 MG Tab PO SCH (21:26)
[2021-06-05] MEDS: Melatonin 3 MG Tab PO SCH (21:28)
[2021-06-06] MEDS: Insulin Lispro 100 Unit/ML 3 ML KwikPen SUBCUT SCH ×4 (06:35→22:58)
[2021-06-06] MEDS: FLUoxetine 10 MG Cap PO SCH (08:45)
[2021-06-06] MEDS: Furosemide 40 MG Tab PO SCH (08:45)
[2021-06-06] MEDS: Aspirin 81 MG Tab.Chew PO SCH (08:45)
[2021-06-06] MEDS: Cholecalciferol (Vitamin D3) 25 MCG Tab PO SCH (08:45)
[2021-06-06] MEDS: Potassium Chloride 20 MEQ Tab.ER PO SCH ×2 (08:46→22:06)
[2021-06-06] MEDS: Enoxaparin 40 MG/0.4 ML Syringe SUBCUT SCH (12:25)
[2021-06-06] MEDS: Nicotine 21 MG/24 Hr Patch TRDERM SCH (12:27)
[2021-06-06] MEDS: Rosuvastatin 10 MG Tab PO SCH (22:05)
[2021-06-06] MEDS: QUEtiapine 25 MG Tab PO SCH (22:05)
[2021-06-07] MEDS: Cholecalciferol (Vitamin D3) 25 MCG Tab PO SCH (08:20)
[2021-06-07] MEDS: FLUoxetine 10 MG Cap PO SCH (08:20)
[2021-06-07] MEDS: Aspirin 81 MG Tab.Chew PO SCH (08:20)
[2021-06-07] MEDS: Furosemide 40 MG Tab PO SCH (08:20)
[2021-06-07] MEDS: Potassium Chloride 20 MEQ Tab.ER PO SCH (08:21)
[2021-06-07] MEDS: Insulin Lispro 100 Unit/ML 3 ML KwikPen SUBCUT SCH ×3 (08:21→23:24)
[2021-06-07] MEDS: Nicotine 21 MG/24 Hr Patch TRDERM SCH (10:03)
[2021-06-07] MEDS: Enoxaparin 40 MG/0.4 ML Syringe SUBCUT SCH (10:03)
[2021-06-07] MEDS: Rosuvastatin 10 MG Tab PO SCH (22:37)
[2021-06-07] MEDS: QUEtiapine 25 MG Tab PO SCH (22:39)
[2021-06-08] MEDS: Insulin Lispro 100 Unit/ML 3 ML KwikPen SUBCUT SCH ×4 (07:56→21:27)
[2021-06-08] MEDS: Cholecalciferol (Vitamin D3) 25 MCG Tab PO SCH (09:44)
[2021-06-08] MEDS: Furosemide 40 MG Tab PO SCH (09:45)
[2021-06-08] MEDS: Potassium Chloride 20 MEQ Tab.ER PO SCH (09:46)
[2021-06-08] MEDS: FLUoxetine 10 MG Cap PO SCH (09:47)
[2021-06-08] MEDS: Aspirin 81 MG Tab.Chew PO SCH (09:47)
[2021-06-08] MEDS: Enoxaparin 40 MG/0.4 ML Syringe SUBCUT SCH (12:57)
[2021-06-08] MEDS: Nicotine 21 MG/24 Hr Patch TRDERM SCH (12:57)
[2021-06-08] MEDS: Rosuvastatin 10 MG Tab PO SCH (21:00)
[2021-06-08] MEDS: QUEtiapine 25 MG Tab PO SCH (21:01)
[2021-06-09] MEDS: Insulin Lispro 100 Unit/ML 3 ML KwikPen SUBCUT SCH ×4 (09:21→21:48)
[2021-06-09] MEDS: Furosemide 40 MG Tab PO SCH (09:44)
[2021-06-09] MEDS: Aspirin 81 MG Tab.Chew PO SCH (09:45)
[2021-06-09] MEDS: Cholecalciferol (Vitamin D3) 25 MCG Tab PO SCH (09:45)
[2021-06-09] MEDS: Potassium Chloride 20 MEQ Tab.ER PO SCH (09:45)
[2021-06-09] MEDS: FLUoxetine 10 MG Cap PO SCH (09:45)
[2021-06-09] MEDS: Enoxaparin 40 MG/0.4 ML Syringe SUBCUT SCH (12:03)
[2021-06-09] MEDS: Nicotine 21 MG/24 Hr Patch TRDERM SCH (12:03)
[2021-06-09] MEDS: Rosuvastatin 10 MG Tab PO SCH (21:47)
[2021-06-09] MEDS: QUEtiapine 25 MG Tab PO SCH (21:47)
[2021-06-10] MEDS: Insulin Lispro 100 Unit/ML 3 ML KwikPen SUBCUT SCH ×5 (07:06→21:11)
[2021-06-10] MEDS ORDERED: Furosemide 20 MG Tab PO SCH (09:00)
[2021-06-10] MEDS: Aspirin 81 MG Tab.Chew PO SCH (09:25)
[2021-06-10] MEDS: FLUoxetine 10 MG Cap PO SCH (09:25)
[2021-06-10] MEDS: Cholecalciferol (Vitamin D3) 25 MCG Tab PO SCH (09:25)
[2021-06-10] MEDS ORDERED: Lactated Ringers 500 ML IV ONE (09:29)
[2021-06-10] MEDS: Potassium Chloride 20 MEQ Tab.ER PO SCH (09:36)
[2021-06-10] MEDS: Nicotine 21 MG/24 Hr Patch TRDERM SCH (10:45)
[2021-06-10] MEDS: Enoxaparin 40 MG/0.4 ML Syringe SUBCUT SCH (10:46)
[2021-06-10] MEDS: Rosuvastatin 10 MG Tab PO SCH (20:41)
[2021-06-10] MEDS: QUEtiapine 25 MG Tab PO SCH (20:41)
[2021-06-11] MEDS: Insulin Lispro 100 Unit/ML 3 ML KwikPen SUBCUT SCH ×3 (06:27→21:41)
[2021-06-11] MEDS: Aspirin 81 MG Tab.Chew PO SCH (10:00)
[2021-06-11] MEDS: Cholecalciferol (Vitamin D3) 25 MCG Tab PO SCH (10:00)
[2021-06-11] MEDS: Nicotine 21 MG/24 Hr Patch TRDERM SCH (10:02)
[2021-06-11] MEDS: Enoxaparin 40 MG/0.4 ML Syringe SUBCUT SCH (10:02)
[2021-06-11] MEDS: FLUoxetine 10 MG Cap PO SCH (10:02)
[2021-06-11] MEDS ORDERED: Lactated Ringers 1,000 ML IV SCH (10:45)
[2021-06-11] MEDS: Rosuvastatin 10 MG Tab PO SCH (20:46)
[2021-06-11] MEDS: QUEtiapine 25 MG Tab PO SCH (20:46)
[2021-06-12] MEDS: Insulin Lispro 100 Unit/ML 3 ML KwikPen SUBCUT SCH ×4 (06:31→21:16)
[2021-06-12] MEDS: FLUoxetine 10 MG Cap PO SCH (08:13)
[2021-06-12] MEDS: Cholecalciferol (Vitamin D3) 25 MCG Tab PO SCH (08:13)
[2021-06-12] MEDS: Aspirin 81 MG Tab.Chew PO SCH (08:13)
[2021-06-12] MEDS: Enoxaparin 40 MG/0.4 ML Syringe SUBCUT SCH (11:51)
[2021-06-12] MEDS: Nicotine 21 MG/24 Hr Patch TRDERM SCH (11:51)
[2021-06-12] MEDS: Rosuvastatin 10 MG Tab PO SCH (20:03)
[2021-06-12] MEDS: QUEtiapine 25 MG Tab PO SCH (20:03)
[2021-06-12] MEDS: Brimonidine 0.2% Ophth Soln 5 ML Bottle EYEBOTH SCH (20:04)
[2021-06-13] MEDS: Insulin Lispro 100 Unit/ML 3 ML KwikPen SUBCUT SCH ×4 (08:26→21:06)
[2021-06-13] MEDS: FLUoxetine 10 MG Cap PO SCH (08:27)
[2021-06-13] MEDS: Allopurinol 100 MG Tab PO SCH (08:27)
[2021-06-13] MEDS: atorvaSTATin 20 MG Tab PO SCH (08:27)
[2021-06-13] MEDS: Aspirin 81 MG Tab.Chew PO SCH (08:28)
[2021-06-13] MEDS: Cholecalciferol (Vitamin D3) 25 MCG Tab PO SCH (08:28)
[2021-06-13] MEDS: Brimonidine 0.2% Ophth Soln 5 ML Bottle EYEBOTH SCH ×2 (08:28→21:12)
[2021-06-13] MEDS: Enoxaparin 40 MG/0.4 ML Syringe SUBCUT SCH (11:40)
[2021-06-13] MEDS: Nicotine 21 MG/24 Hr Patch TRDERM SCH (11:47)
[2021-06-13] MEDS: Rosuvastatin 10 MG Tab PO SCH (21:08)
[2021-06-13] MEDS: QUEtiapine 25 MG Tab PO SCH (21:09)
[2021-06-14] MEDS: atorvaSTATin 20 MG Tab PO SCH (09:42)
[2021-06-14] MEDS: Cholecalciferol (Vitamin D3) 25 MCG Tab PO SCH (09:42)
[2021-06-14] MEDS: Brimonidine 0.2% Ophth Soln 5 ML Bottle EYEBOTH SCH ×2 (09:42→21:35)
[2021-06-14] MEDS: FLUoxetine 10 MG Cap PO SCH (09:43)
[2021-06-14] MEDS: Aspirin 81 MG Tab.Chew PO SCH (09:43)
[2021-06-14] MEDS: Allopurinol 100 MG Tab PO SCH (09:43)
[2021-06-14] MEDS: Enoxaparin 40 MG/0.4 ML Syringe SUBCUT SCH (11:03)
[2021-06-14] MEDS: Nicotine 21 MG/24 Hr Patch TRDERM SCH (11:04)
[2021-06-14] MEDS: Insulin Lispro 100 Unit/ML 3 ML KwikPen SUBCUT SCH (12:57)
[2021-06-14] MEDS: metFORMIN 500 MG Tab PO SCH (18:23)
[2021-06-14] MEDS: Rosuvastatin 10 MG Tab PO SCH (21:34)
[2021-06-14] MEDS: QUEtiapine 25 MG Tab PO SCH (21:35)
[2021-06-15] MEDS ORDERED: Furosemide 20 MG/2 ML VIAL IVPUSH ONE (08:45)
[2021-06-15] MEDS: Allopurinol 100 MG Tab PO SCH (10:32)
[2021-06-15] MEDS: FLUoxetine 10 MG Cap PO SCH (10:35)
[2021-06-15] MEDS: Cholecalciferol (Vitamin D3) 25 MCG Tab PO SCH (10:35)
[2021-06-15] MEDS: Aspirin 81 MG Tab.Chew PO SCH (10:35)
[2021-06-15] MEDS: atorvaSTATin 20 MG Tab PO SCH (10:35)
[2021-06-15] MEDS: Nicotine 21 MG/24 Hr Patch TRDERM SCH (10:36)
[2021-06-15] MEDS: Enoxaparin 40 MG/0.4 ML Syringe SUBCUT SCH (10:36)
[2021-06-15] MEDS: Brimonidine 0.2% Ophth Soln 5 ML Bottle EYEBOTH SCH ×2 (10:36→20:00)
[2021-06-15] MEDS: Sodium Polystyrene Sulfonate 15 GM/60 ML Susp 60 ML Bot PO SCH ×2 (10:37→12:21)
[2021-06-15] MEDS ORDERED: Furosemide 40 MG Tab PO ONE (10:45)
[2021-06-15] MEDS ORDERED: Sodium Polystyrene Sulfonate 15 GM/60 ML Susp 60 ML Bot PO ONE (12:30)
[2021-06-15] MEDS: metFORMIN 500 MG Tab PO SCH (16:48)
[2021-06-15] MEDS: QUEtiapine 25 MG Tab PO SCH (20:00)
[2021-06-16] MEDS: atorvaSTATin 20 MG Tab PO SCH (09:26)
[2021-06-16] MEDS: Allopurinol 100 MG Tab PO SCH (09:27)
[2021-06-16] MEDS: Cholecalciferol (Vitamin D3) 25 MCG Tab PO SCH (09:27)
[2021-06-16] MEDS: FLUoxetine 10 MG Cap PO SCH (09:39)
[2021-06-16] MEDS: Brimonidine 0.2% Ophth Soln 5 ML Bottle EYEBOTH SCH (09:39)
[2021-06-16] MEDS: Aspirin 81 MG Tab.Chew PO SCH (09:39)
[2021-06-16] MEDS: Enoxaparin 40 MG/0.4 ML Syringe SUBCUT SCH (10:38)
[2021-06-16] MEDS: Nicotine 21 MG/24 Hr Patch TRDERM SCH (10:58)
[2021-06-16] MEDS: metFORMIN 500 MG Tab PO SCH (17:05)
[2021-06-16] MEDS: QUEtiapine 25 MG Tab PO SCH (20:25)
[2021-06-17] MEDS: Brimonidine 0.2% Ophth Soln 5 ML Bottle EYEBOTH SCH ×3 (01:16→20:12)
[2021-06-17] MEDS: FLUoxetine 10 MG Cap PO SCH (08:08)
[2021-06-17] MEDS: Allopurinol 100 MG Tab PO SCH (08:08)
[2021-06-17] MEDS: atorvaSTATin 20 MG Tab PO SCH (08:08)
[2021-06-17] MEDS: Cholecalciferol (Vitamin D3) 25 MCG Tab PO SCH (08:08)
[2021-06-17] MEDS: Aspirin 81 MG Tab.Chew PO SCH (08:08)
[2021-06-17] MEDS: Nicotine 21 MG/24 Hr Patch TRDERM SCH (12:28)
[2021-06-17] MEDS: Enoxaparin 40 MG/0.4 ML Syringe SUBCUT SCH (12:30)
[2021-06-17] MEDS: metFORMIN 500 MG Tab PO SCH (16:08)
[2021-06-17] MEDS: QUEtiapine 25 MG Tab PO SCH (20:10)
[2021-06-18] MEDS: FLUoxetine 10 MG Cap PO SCH (09:17)
[2021-06-18] MEDS: Brimonidine 0.2% Ophth Soln 5 ML Bottle EYEBOTH SCH ×2 (09:17→21:15)
[2021-06-18] MEDS: Allopurinol 100 MG Tab PO SCH (09:17)
[2021-06-18] MEDS: Aspirin 81 MG Tab.Chew PO SCH (09:17)
[2021-06-18] MEDS: atorvaSTATin 20 MG Tab PO SCH (09:18)
[2021-06-18] MEDS: Cholecalciferol (Vitamin D3) 25 MCG Tab PO SCH (09:18)
[2021-06-18] MEDS ORDERED: Docusate Sodium 100 MG Cap PO PRN (10:17)
[2021-06-18] MEDS: Nicotine 21 MG/24 Hr Patch TRDERM SCH (10:44)
[2021-06-18] MEDS: Enoxaparin 40 MG/0.4 ML Syringe SUBCUT SCH (10:44)
[2021-06-18] MEDS: metFORMIN 500 MG Tab PO SCH (17:47)
[2021-06-18] MEDS: QUEtiapine 25 MG Tab PO SCH (21:15)
[2021-06-19] MEDS: Brimonidine 0.2% Ophth Soln 5 ML Bottle EYEBOTH SCH (09:04)
[2021-06-19] MEDS: Allopurinol 100 MG Tab PO SCH (09:04)
[2021-06-19] MEDS: atorvaSTATin 20 MG Tab PO SCH (09:05)
[2021-06-19] MEDS: FLUoxetine 10 MG Cap PO SCH (09:05)
[2021-06-19] MEDS: Aspirin 81 MG Tab.Chew PO SCH (09:05)
[2021-06-19] MEDS: Cholecalciferol (Vitamin D3) 25 MCG Tab PO SCH (09:05)
== END 2021-06-19 10:20 | DRG 642 ==
LOC: JD.ED 18:53 → JD.ICU 05-29 13:24 → JD.MS 05-31 09:41
PROVIDERS: ADMIT Family Medicine; ATTEND Internal Medicine
PROC: 5A09457 Assistance with Respiratory Ventilation, 24-96 Consecutive Hours, Continuous Positive Airway Pressure (ICD-10-PCS; principal; 2021-06-19)
DX: A41.9 Sepsis, unspecified organism (principal); I21.4 Non-ST elevation (NSTEMI) myocardial infarction; Z93.6 Other artificial openings of urinary tract status; E87.2 Acidosis; E78.6 Lipoprotein deficiency; I50.9 Heart failure, unspecified; J18.9 Pneumonia, unspecified organism; J96.01 Acute respiratory failure with hypoxia; I21.A1 Myocardial infarction type 2; N30.01 Acute cystitis with hematuria; N17.9 Acute kidney failure, unspecified; E11.9 Type 2 diabetes mellitus without complications; I50.32 Chronic diastolic (congestive) heart failure; H40.9 Unspecified glaucoma; F41.9 Anxiety disorder, unspecified; Z20.822 Contact with and (suspected) exposure to COVID-19; F32.A Depression, unspecified; E83.52 Hypercalcemia; E87.6 Hypokalemia; E83.42 Hypomagnesemia; Z79.82 Long term (current) use of aspirin; Z79.84 Long term (current) use of oral hypoglycemic drugs; Z79.899 Other long term (current) drug therapy; F17.210 Nicotine dependence, cigarettes, uncomplicated; E78.00 Pure hypercholesterolemia, unspecified; I11.0 Hypertensive heart disease with heart failure; K59.09 Other constipation; M10.9 Gout, unspecified; Z95.1 Presence of aortocoronary bypass graft; Z90.89 Acquired absence of other organs; E11.621 Type 2 diabetes mellitus with foot ulcer; L97.509 Non-pressure chronic ulcer of other part of unspecified foot with unspecified severity; Z87.01 Personal history of pneumonia (recurrent)
CPT/HCPCS: 0240U; 36415; 36600; 71045; 71250; 71275; 80048; 80053; 80061; 80202; 81001; 82306; 82553; 82803; 82947; 83036; 83605; 83735; 83880; 83970; 84100; 84484; 85007; 85025; 85027; 85379; 85730; 86140; 86738; 87040; 87086; 92523; 93005; 93306; 94762; 97110; 97116; 97162; 93010; 99285; A9270-GY; J1644; J1650; J1815; J1940; J2543; J3370; J3475; J3480; J7040; J7050; J7120; U0002